=== PATIENT | male | born 1935 | race Caucasian/White ===

== ENCOUNTER 2016-08-18 09:57 | Inpatient (IN) | payer MEDICARE ==
[~2016-08-18] VITALS: Ht 193 cm; Wt 82.0 kg
--- NOTE | ~2016-08-18 | ECH ---
Transthoracic Echocardiography Report (TTE) Demographics Patient Name GUSTABO MYERS Date of Study 08/19/2016 F Patient Number [id number] Visit Number [id number] Date of 1935 Room Number 422 Accession Number [id number] Gender Male Age 81 year(s) Referring Hellen Jung MD Health And Wellness Manager [facility] Physician Physician Interpreting Kristyn Jay MD Floater Operator Physician Supervising Ordering Physician Kena SWANSON MD/SRINIVASAN [place] Nurse Stress Repair Servicer Conclusions Summary Technically adequate exam. The estimated left ventricular ejection fraction is 30%. Segmental wall motion abnormalities. Moderate left ventricular hypertrophy. There is mild aortic regurgitation by color Doppler. Procedure Type of Study TTE procedure:Echo Complete SF. Procedure Date Date: 08/19/2016 Start: 04:00 PM Technical Quality: Fair Indications:Congestive heart failure and Atrial fibrillation. Additional Indications:pacemaker Appropriate Use Criteria: 9 Height: 75 inches Weight: 178.58 pounds BSA: 2.09 m Rhythm: Paced HR: 70 bpm BP: 110/51 mmHg M-Mode/2D Measurements LV Diastolic Dimension: 5.05 cm LV Systolic Dimension: 3.91 cm LV Septum Diastolic: 1.44 cm LV PW Diastolic: 1.38 cm AO Root Dimension: 3.41 cm Cardiac Output: 8.79 l/min LA Dimension: 3.19 cm Cardiac Index: 4.21 l/min*m RV Diastolic Dimension: 3.99 cm LA volume index: 18 ml/m LVOT: 3.34 cm LVOT VTI: 14.34 cm RV Base: 4.5 cm LV Stroke volume: 125.58 ml RV Mid: 3.1 cm LV Stroke volume index: 60.09 ml/m RV Length: 7.2 cm Doppler Measurements AV Mean Gradient: 5.72 mmHg MV Peak E-Wave: 1.09 m/s LVOT Peak Velocity: 0.85 m/s AV Area (Continuity):5.98 cm PV Peak Velocity: 0.82 m/s PV Peak Gradient: 2.67 mmHg RA Area: 13.37 cm Findings Left Ventricle The left ventricle is normal in size . Moderate left ventricular hypertrophy. Diastolic function indeterminate due to patient's arrhythmia. Right Ventricle Normal right ventricle structure and function. Device lead noted in the right ventricle. Left Atrium Normal left atrial size. Right Atrium Normal right atrial size. Device lead seen in the right atrium. Mitral Valve Normal mitral valve structure and function. Mild thickening of the mitral valve leaflets. Mild mitral regurgitation by color Doppler. Aortic Valve Normal aortic valve structure and function. There is mild aortic regurgitation by color Doppler. Tricuspid Valve Normal tricuspid valve structure and function. Pulmonic Valve Normal pulmonic valve structure and function. Pericardial Effusion No evidence of pericardial effusion. Miscellaneous Visualized portions of the aortic root and ascending aorta appear normal in size. Pleural Effusion No evidence of pleural effusion. Contractility Score LV regional wall motion:(0-Non visualized 1-Normal 2-Hypokinesis 3-Akinesis 4-Dyskinesis 5-Aneurysm) Signature
[~2016-08-18 09:57] MED LIST: ALDACTONE DPS25 MG PO; ASPIR 8181 MG PO; CLARITIN DPS10 MG PO; CORDARONE DPS200 MG PO; DELTASONE DPS10 MG PO; DELTASONE DPS20 MG PO; DULCOLAX-DPS10 MG PR; DULERA 200/58.8 GM IH; DUONEB DPS3 ML IH; ELIQUIS5 MG PO; FLONASE 0.05% D16 GM IH; HABITROL DPS21 MG TD; HABITROL DPS7 MG TD; KERODEX 71113 GM TP; LANOXIN DPS0.125 MG PO; LASIX DPS40 MG PO; LIDODERM PATCH TD; LIPITOR40 MG PO; LOPRESSOR DPS12.5 MG PO; LOPRESSOR DPS50 MG PO; MAALOX DPS30 ML PO; MILK OF MAGNESI10 ML PO; MIRALAX PACKET17 GM PO; NEURONTIN DPS300 MG PO; NITROSTAT0.4 MG SL; NOVOLIN R,100 UNITS/ SQ; ORGAN-I NR200 MG PO; OYSTER SHELL C500 MG PO; PLAVIX75 MG PO; PROTONIX40 MG PO; PROVENTIL2.5 MG/0.5 IH; PROVENTIL2.5 MG/3 M IH; SALINE MIST45 ML NS; SENOKOT S1 TAB PO; SPIRIVA18 MCG IH; SURFAK DPS240 MG PO; SYMBICORT 16010.2 GM IH; THERAPEUTIC MUL1 TAB PO; TYLENOL DPS325 MG PO; ULTRAM DPS50 MG PO; VIBRAMYCIN-DPS100 M2 PO; VITAMIN D5000 UNIT PO; ZESTRIL DPS2.5 MG PO; ZESTRIL DPS5 MG PO; [UNRECOGNIZED DRUG - OTHER] OU
--- NOTE | 2016-08-19 07:42 | HP ---
ADMIT: 08/18/2016 RM/LOC: 422 [facility] MR#: [id number] [address] [address] SUKUMARMEMEGUSTABO RODRIGUEZ [address] [place] [address] History and Physical SEX: M AGE: 81 : 1935 DATE OF SERVICE: CHIEF COMPLAINT: Shortness of breath. HISTORY OF PRESENT ILLNESS: This is an 81-year-old gentleman. He has history of ischemic cardiomyopathy with EF about 20% and severe COPD. He was in the [facility] until last month. He reports he got out of there, started smoking again and then got more short of breath. He reports he was set up to have what sounds like a heart cath and a defibrillator placed, but he says that has not gotten set up yet. He states he is taking his medicines. He is not exactly sure what they all are. Again, he has started smoking. He states he is coughing more and coughing up some thick phlegm and just has been "running of out air." This is severe, nothing seems to make it better, exertion makes it much worse. PAST MEDICAL HISTORY: Ischemic cardiomyopathy, chronic systolic congestive heart failure. Coronary artery disease. Hypertension. Hyperlipidemia. History of atrial fibrillation. He has a pacemaker left bundle branch block. Cardiac stents in 2007. Last echo showed EF 25% since last June and last July. He has severe COPD, chronic hypoxic respiratory failure, hematuria, hearing loss, arthritis. He has had cataract, he has had GERD, chronic back pain. SOCIAL HISTORY: , retired. Currently smoking about half pack cigarettes per day, but before that had smoked 2 packs per day for many years. No current alcohol, history of being in the [employer], was in [place] to the [place]. PAST SURGICAL HISTORY: Include 3 stents in 2007, pacemaker, 3 hernia repairs. ALLERGIES: NONE. MEDICATIONS: 1. Aldactone 12.5 mg daily. 2. Plavix 75 mg daily. 3. Eliquis 5 mg b.i.d. 4. Lasix 80 mg in the morning, 40 at night. 5. Coreg 6.25 mg b.i.d. 6. Neurontin. 7. Symbicort. 8. DuoNeb. 9. Flonase. 10.P.r.n. medications multivitamin. FAMILY HISTORY: Heart disease, diabetes, and prostate cancer. REVIEW OF SYSTEMS: Other complete review of systems, he has had obstructive sleep apnea, refused to wear CPAP, wears hearing aids. Otherwise, reviewed entirely and negative except as above. ADMIT: 08/18/2016 RM/LOC: 422 [facility] MR#: [id number] [address] [address] [facility] [address] [place] [address] History and Physical SEX: M AGE: 81 : 1935 PHYSICAL EXAMINATION: VITAL SIGNS: Temp 95.4, pulse 78, respirations 18, blood pressure 122/63, oxygen saturations 91% on 3 L of oxygen by nasal cannula. GENERAL: This is a well-appearing 81-year-old gentleman, he is in no apparent distress. He is wearing glasses. HEENT: Pupils are equal, round, and reactive to light and accommodation. His extraocular muscles are intact. His throat shows some thick mucus in his posterior pharynx. Otherwise, clear. NECK: Supple. Normal range of motion. Trachea midline. Thyroid not palpable. HEART: Regular rate and rhythm. He has a pacer in his left upper chest. LUNGS: Diminished throughout bilaterally. ABDOMEN: Distended, tympanic throughout. LOWER EXTREMITIES: Have venous insufficiency changes. He has about 2+ pitting edema bilaterally. He can move all extremities equally bilaterally. LABORATORY AND X-RAY DATA: White count 6.6, hemoglobin 14.0, platelets 197. Chest x-ray shows hyperinflation, chronic fibrotic changes. CMP; sodium 135, potassium 4.2, chloride 86, bicarb 37, BUN 15, creatinine 1.0. Glucose is 60, albumin of 3.2. Liver tests are all normal. Troponin I was 0.087, NT proBNP is 2477. ASSESSMENT AND PLAN: 1. Shortness of breath. 2. Acute on chronic systolic congestive heart failure. 3. Elevated troponin with history of coronary artery disease, rule out acute coronary syndrome. 4. Chronic obstructive pulmonary disease, severe, with acute exacerbation. 5. Chronic back pain. 6. Coronary artery disease. 7. Atrial fibrillation. 8. Chronic anticoagulation. PLAN: He has been admitted to the hospital. Treat him for acute CHF as well as COPD exacerbation. Continue most of his same home medicines and nebulizer treatments. I will add EzPAP to help with his breathing. I suspect he will need skilled care once again, I hope that the [facility] can have this set up at that time. Ady Macedo MD/ re JOB #: [id number] CC: Ady Macedo, Attending Physician Ady Macedo, Family Physician
--- NOTE | 2016-08-19 10:00 | ER ---
ADMIT: 08/18/2016 RM/LOC: 422 [facility] MR#: [id number] [address] [address] GUSTABO MYERS [address] [place] [address] Emergency Room Report SEX: M AGE: 81 : 1935 DATE: 08/18/2016 ADDENDUM: An 81-year-old white male coming in with shortness of breath. He does have cardiac myopathy and congestive heart failure. I think he has acute on chronic congestive heart failure. He was in about 3 or 4 months ago with this as well. Chemistry essentially looks okay with the exception that his troponin has a little bump at 0.087. His BNP is 2477. He has a little bit of pain with this, but it is more kind of around to his back. CBC and urine look okay at this time. He received 60 of Lasix. He is not septic. I spoke with Dr. Macedo [facility], and we will admit here. CONDITION ON DISCHARGE: Serious but stable. Primitivo Zhong MD/ modl JOB #: [id number] CC: Ady Macedo MD, Attending Physician Ady Macedo MD, Family Physician
[2016-08-27] MEDS ORDERED: ALDACTONE DPS25 MG PO (06:34)
[2016-08-27] MEDS ORDERED: COREG DPS6.25 MG PO (06:34)
[2016-08-27] MEDS ORDERED: DELTASONE DPS20 MG PO (06:35)
[2016-08-27] MEDS ORDERED: LANOXIN DPS0.125 MG PO (06:36)
[2016-08-27] MEDS ORDERED: FEOSOL-DPS325 MG PO (06:36)
[2016-08-27] MEDS ORDERED: LASIX DPS80 MG PO (06:37)
[2016-08-27] MEDS ORDERED: ORGAN-I NR200 MG PO (06:39)
[2016-08-27] MEDS ORDERED: TYLENOL DPS325 MG PO (06:40)
[2016-08-27] MEDS ORDERED: VIBRAMYCIN-DPS100 M1 PO (06:41)
[2016-08-27] MEDS ORDERED: DUONEB DPS3 ML IH (06:42)
[2016-08-27] MEDS ORDERED: SPIRIVA18 MCG IH (06:42)
[2016-08-27] MEDS ORDERED: DULERA 200/58.8 GM IH (06:42)
[2016-08-27] MEDS ORDERED: OCEAN NASAL MIS45 ML NS (06:43)
[2016-08-27] MEDS ORDERED: EUCERIN CREME57 GM TP (06:44)
[2016-08-27] MEDS ORDERED: NICOTINE PATCH1 EAC1 TP (06:45)
--- NOTE | 2016-08-29 15:09 | CO ---
ADMIT: 08/18/2016 RM/LOC: 422 [facility] MR#: [id number] [address] [address] ALTAF MYERS [address] [place] [address] Consultation SEX: M AGE: 81 : 1935 DATE OF CONSULTATION: 08/19/2016 ATTENDING PHYSICIAN: Ady Macedo CONSULTING PHYSICIAN: Roel Escudero MD REASON FOR CONSULT: Acute on chronic congestive heart failure. HISTORY OF PRESENT ILLNESS: Altaf is an 81-year-old male admitted yesterday for increased shortness of breath and back pain. He states that over the course of the last 4 days his breathing has worsened and the pain become so severe that he finally was willing to come to the ER. He states that today his symptoms are much better. The pain he had in his sides and back has completely gone. His breathing is much improved now. He states that he has not had any chest pain prior to this admission or since admission. He has not had any palpitations or lightheadedness. CARDIAC HISTORY AND RISK FACTORS: Altaf has a significant cardiac history. He has coronary artery disease with stents placed in the LAD and RCA in 2007, followed by additional stents placed in October 2015 in the mid distal LAD. His history is difficult to discern from available records, and the patient is a limited historian. [facility] Ana Laura Kennedy. He has significant ischemic cardiomyopathy, with most recent record of ejection fraction being 25% one year ago. He has a history of atrial fibrillation status post prior ablation. He had an episode 1 year ago of atrial flutter with RVR for which he underwent cardioversion with success. He had a [employer] pacemaker placed in 2013 for sick sinus syndrome from available records. He states that he thinks his drop hammer set up operator was planning on placing an additional lead for this. He has chronic congestive heart failure. Hypertension. Hyperlipidemia. Known left bundle-branch block. His risk factors are significant for ongoing tobacco abuse. He states he has smoked intermittently for the last 55 years. He has a history of hypertension that has been treated medically over the last 10 years. He denies history of diabetes. He does have a history of hyperlipidemia. PAST MEDICAL HISTORY: Cardiac history as described above, severe COPD, chronic hypoxic respiratory failure, arthritis, chronic back pain, gastroesophageal reflux disease, cataract, and constipation. PAST SURGICAL HISTORY: Per the patient, he has only had the pacemaker placement and coronary stents. ALLERGIES: NO KNOWN DRUG ALLERGIES. MEDICATIONS: 1. Acetaminophen. 2. Albuterol. 3. DuoNeb. ADMIT: 08/18/2016 RM/LOC: 422 [facility] MR#: [id number] [address] [address] ALTAF MYERS [address] [place] [address] Consultation SEX: M AGE: 81 : 1935 4. Amiodarone 100 mg daily. 5. Apixaban 5 mg twice daily. 6. Atorvastatin 80 mg daily. 7. Symbicort. 8. Carvedilol 6.25 mg twice daily. 9. Clopidogrel 75 mg daily. 10.Digoxin 0.125 mg daily. 11.Senokot. 12.Ferrous gluconate. 13.Gabapentin. 14.Guaifenesin. 15.Eucerin cream. 16.Lidocaine pain patch. 17.Lisinopril 5 mg daily. 18.Milk of magnesia. 19.Saline nasal spray. 20.Spironolactone 12.5 mg daily. 21.Tiotropium. 22.Tramadol as needed. FAMILY HISTORY: Altaf states that his father from a heart attack, he is unsure of what age. He believes that his mom had a stroke. Does not recall any other significant family history. 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 He states that he is , but currently in the process of divorce. He has 1 child living in [place] and another who lives on the [facility]. He states that he does consume caffeine regularly. He used to drink alcohol, however, quit 35 years ago. He denies any other use of nonprescription drugs. REVIEW OF SYSTEMS: GENERAL: Positive for fatigue. Positive for weight loss. Denies fever, chills, sweats, or rash. EYES: Positive for cataract. Positive for vision color changes. Denies double vision, blurred vision, or glaucoma. ENT: Denies hearing loss or problems with nose, mouth or throat. PULMONARY: Positive for chronic cough and COPD. Denies sputum production, asthma, emphysema or bronchitis. Denies snoring loudly, wakefulness at night, or fatigue upon awakening. GASTROINTESTINAL: Positive for heartburn and acid reflux. Denies difficulty swallowing. No change in bowel habits. Denies dark or bloody stools. No history of ulcers, hiatal hernia, or gallbladder or liver disease. GENITOURINARY: Denies dysuria, hematuria, nocturia, urinary tract infection, or kidney stones. Denies history of renal insufficiency or failure. MUSCULOSKELETAL: Positive for arthritis. Denies history of gout. Denies muscle or joint pains. ENDOCRINE: Denies history of thyroid dysfunction or diabetes. HEMATOLOGIC: Denies history of anemia, easy bruising, or cancer. NEUROLOGIC: Denies chronic headaches, dizziness, syncope, stroke, seizures or ADMIT: 08/18/2016 RM/LOC: 422 [facility] MR#: [id number] [facility] [address] [address] ALTAF MYERS [address] [place] [address] Consultation SEX: M AGE: 81 : 1935 numbness or tingling. PSYCHIATRIC: Denies history of mental illness or feelings of depression. PHYSICAL EXAMINATION: VITAL SIGNS: Blood pressure 115/54, pulse 70, respirations 16, temperature 96.8, O2 saturation 90%. GENERAL: Ill appearing, in no acute distress. SKIN: [place], warm and dry. EYES: Sclerae clear. No xanthelasmas. ENT: JVP elevated. Oral mucosa is pink and moist. No jugular venous distention or carotid bruits. LUNGS: Distant breath sounds. Expiratory wheezes. HEART: Regular rate and rhythm. Distant heart sounds. ABDOMEN: Obese, soft, and nontender. MUSCULOSKELETAL: Gait is normal. EXTREMITIES: +2 edema bilaterally. NEUROLOGIC: No gross deficits. PSYCHIATRIC: Alert and oriented. Mood and affect are appropriate. DIAGNOSTIC DATA: WBC 3.2, hemoglobin 14, platelets 211. Creatinine 1.1. His MB has trended down from 8.4 to 6.1. His troponin has also trended down from 0.087 to 0.053. BNP 2477. EKG reveals a known left bundle-branch block. Chest x-ray revealed hyperinflation and possible nodule at the right apex. IMPRESSION AND RECOMMENDATIONS: 1. Acute on chronic systolic heart failure. We agree with diuresis with IV Lasix. We will also check an echocardiogram. He may have some exacerbation due to chronic right ventricular pacing. His troponin is indeterminant, and there is no definite evidence of acute coronary ADMIT: 08/18/2016 RM/LOC: 422 [facility] MR#: [id number] [address] [place] [address] [facility] [address] [place] [address] Consultation SEX: M AGE: 81 : 1935 syndrome. 2. Acute on chronic hypoxic respiratory failure. 3. Back pain, acute. 4. Coronary artery disease status post percutaneous coronary intervention last summer, [facility]. 5. Ischemic cardiomyopathy, most recent ejection fraction 1 year ago was 25%. 6. Status post internal cardioverter defibrillator. We will have that device checked to assess frequency of ventricular pacing. We will try to get pertinent records from the [facility] and adjust our plan based on results. EUGENIA Turner Student / Roel Escudero MD / re JOB #: [id number] CC: Ady Macedo, Attending Physician Ady Macedo, Family Physician
--- NOTE | 2016-09-09 12:58 | DS ---
ADMIT: 08/18/2016 RM/LOC: 422 [facility] MR#: [id number] [address] [address] GUSTABO MYERS [address] [place] [address] General Discharge Summary SEX: M AGE: 81 : 1935 ADMISSION DATE: 08/18/2016 DISCHARGE DATE: 08/26/2016 FINAL DIAGNOSES: 1. Shortness of breath. 2. Acute on chronic systolic congestive heart failure. 3. Elevated troponin with history of coronary artery disease. 4. Chronic obstructive pulmonary disease, severe, with acute exacerbation. 5. Chronic back pain. 6. Coronary artery disease. 7. Atrial fibrillation. 8. Chronic anticoagulation, on Eliquis. 9. Acute on chronic hypoxic respiratory failure. REASON FOR ADMISSION: See dictated H and P. Briefly, this is an 81-year-old gentleman, history of ischemic cardiomyopathy, EF 20%, severe COPD. He was at the [facility] rehab unit until last month. When he got out of there, started smoking again, got more short of breath. He had some more increased phlegm and so he got short of breath and was running out of air, so he came to the emergency room. HOSPITAL COURSE: The patient was admitted, treated with IV diuresis as well as pulmonary toilet, IV steroids, and some antibiotics in the form of doxycycline. We monitored him closely with elevated troponin. [facility] and it looks like he has been attempted to be upgraded to a biventricular ICD, but this has never happened because he keeps getting sick in the meantime. Echocardiogram seemed consistent with his old results. Continued with diuresis while he was here. The patient ultimately was a little afraid to go home because of overall weakness. He does have some chronic back problems, was limited as well, as well as shortness of breath and his need for chronic oxygen. Therefore, he was set up to go to skilled care at [facility] so he can continue to rehabilitate and get stronger. DISCHARGE MEDICATIONS: Include: 1. Aldactone 12.5 mg daily. 2. Amiodarone 100 mg daily. 3. Coreg 6.25 mg daily. 4. Prednisone after the 40 mg dose will be 20 mg for 5 days and then 10 mg daily after that. 5. Eliquis 5 mg b.i.d. 6. Ferrous gluconate 325 mg daily. 7. Digoxin 0.25 mg daily. 8. Lasix 80 mg daily. 9. Lipitor 80 mg daily. 10.Neurontin 600 mg b.i.d. 11.Guaifenesin 400 mg q.i.d. 12.Plavix 75 mg daily. 13.Senokot-S 2 tabs b.i.d. 14.Tylenol 650 q.i.d. ADMIT: 08/18/2016 RM/LOC: 422 [facility] MR#: [id number] [address] [place] [id number] [facility] [address] [id number] General Discharge Summary SEX: M AGE: 81 : 1935 15.Doxycycline 100 mg q.12 hours x7 days. 16.Lisinopril 5 mg daily. 17.Symbicort 160/4.5 two puffs b.i.d. 18.DuoNebs q.i.d. 19.Spiriva 1 puff daily. 20.[place] nasal mist q.i.d. 21.Eucerin b.i.d. 22.Habitrol skin patch 14 mg daily. 23.Lidoderm patch daily on 12 hours, off 12 hours. 24.Nicotine patch will be reduced to 7 mg after 14 days. We will continue with PT and OT and low-salt diet and 3 L of oxygen. Ady Macedo MD/ re JOB #: [id number] CC: Ady Macedo MD, Attending Physician Ady Macedo MD, Family Physician
[2016-09-14] MEDS ORDERED: DELTASONE DPS10 MG PO (10:01)
[2016-09-14] MEDS ORDERED: LEVAQUIN DPS500 MG PO (10:01)
[2016-09-14] MEDS ORDERED: CARVEDILOL3.125 MG PO (10:02)
[2016-09-14] MEDS ORDERED: CORDARONE DPS200 MG PO (10:02)
[2016-09-14] MEDS ORDERED: LASIX DPS80 MG PO (10:02)
[2016-09-14] MEDS ORDERED: ALDACTONE DPS25 MG PO (10:02)
[2016-09-14] MEDS ORDERED: ELIQUIS5 MG PO (10:03)
[2016-09-14] MEDS ORDERED: LANOXIN DPS0.125 MG PO (10:03)
[2016-09-14] MEDS ORDERED: PEPCID DPS20 MG PO (10:03)
[2016-09-14] MEDS ORDERED: PLAVIX75 MG PO (10:03)
[2016-09-14] MEDS ORDERED: LIPITOR40 MG PO (10:03)
[2016-09-14] MEDS ORDERED: ORGAN-I NR200 MG PO (10:03)
[2016-09-14] MEDS ORDERED: MIRALAX PACKET17 GM PO (10:03)
[2016-09-14] MEDS ORDERED: SENOKOT S1 TAB PO (10:03)
[2016-09-14] MEDS ORDERED: SYMBICORT160 MCG/6 IH (10:04)
[2016-09-14] MEDS ORDERED: DUONEB DPS3 ML IH (10:04)
[2016-09-14] MEDS ORDERED: SPIRIVA18 MCG IH (10:04)
[2016-09-14] MEDS ORDERED: OCEAN NASAL MIS45 ML NS (10:04)
[2016-09-14] MEDS ORDERED: NICODERM CQ1 EAC1 TP (10:05)
[2016-09-14] MEDS ORDERED: EUCERIN CREME120 GM TP (10:05)
[2016-09-14] MEDS ORDERED: FERROUS GLUCON324 M1 PO (10:07)
[2016-09-14] MEDS ORDERED: ENDOXCIN 4%-1%1 EACH TP (10:07)
[2016-09-14] MEDS ORDERED: ULTRAM DPS50 MG PO (10:08)
[2016-10-17] MEDS ORDERED: DULCOLAX-DPS5 MG PO (08:07)
[2016-10-17] MEDS ORDERED: DULERA 200/58.8 GM IH (08:08)
[2016-10-17] MEDS ORDERED: ZEBETA5 MG PO (08:08)
[2016-10-17] MEDS ORDERED: KLOR-CON M2020 ME1 PO (08:08)
[2016-10-17] MEDS ORDERED: PROVENTIL2.5 MG/3 M IH (08:09)
[2016-10-17] MEDS ORDERED: TUMS DPS500 MG PO (08:09)
[2016-10-17] MEDS ORDERED: OXY IR DPS5 MG PO (08:09)
[2016-10-17] MEDS ORDERED: DULCOLAX10 MG PR (08:10)
== END 2016-08-26 11:00 | DRG 291 ==
LOC: ER 09:57 → 4PCU 12:40
PROVIDERS: ADMIT Internal Medicine
DX: I11.0 Hypertensive heart disease with heart failure (principal); J96.21 Acute and chronic respiratory failure with hypoxia; J18.9 Pneumonia, unspecified organism; J44.0 Chronic obstructive pulmonary disease with (acute) lower respiratory infection; I48.0 Paroxysmal atrial fibrillation; I44.7 Left bundle-branch block, unspecified; J44.1 Chronic obstructive pulmonary disease with (acute) exacerbation; I50.23 Acute on chronic systolic (congestive) heart failure; I25.5 Ischemic cardiomyopathy; I25.10 Atherosclerotic heart disease of native coronary artery without angina pectoris; F17.210 Nicotine dependence, cigarettes, uncomplicated; G47.33 Obstructive sleep apnea (adult) (pediatric); R79.89 Other specified abnormal findings of blood chemistry; E78.5 Hyperlipidemia, unspecified; H91.90 Unspecified hearing loss, unspecified ear; M19.90 Unspecified osteoarthritis, unspecified site; K21.9 Gastro-esophageal reflux disease without esophagitis; G89.29 Other chronic pain; M54.9 Dorsalgia, unspecified; Z79.02 Long term (current) use of antithrombotics/antiplatelets; Z95.5 Presence of coronary angioplasty implant and graft; Z95.0 Presence of cardiac pacemaker; Z82.49 Family history of ischemic heart disease and other diseases of the circulatory system

== ENCOUNTER 2016-09-04 06:17 | Inpatient (IN) | payer MEDICARE ==
[~2016-09-04] VITALS: Ht 193 cm; Wt 82.0 kg
[~2016-09-04 06:17] MED LIST changes: +COREG DPS6.25 MG PO; +EUCERIN CREME57 GM TP; +FEOSOL-DPS325 MG PO; +LASIX DPS80 MG PO; +NICOTINE PATCH1 EAC1 TP; +OCEAN NASAL MIS45 ML NS; +VIBRAMYCIN-DPS100 M1 PO
--- NOTE | 2016-09-04 19:11 | ER ---
ADMIT: 09/04/2016 RM/LOC: 310 [facility] MR#: [id number] [address] [address] LULYBORISRIVERA RODRIGUEZY Markus [address] [place] [address] Emergency Room Report SEX: M AGE: 81 : 1935 DATE: 09/04/2016 The patient is an 81-year-old male, who was brought here from nursing care facility because of shortness of breath. The patient has history of COPD, hypertension, coronary artery disease with 2 stents, ischemic cardiomyopathy with ejection fraction of 20%, and who has been on 3 L of nasal cannula all the time and his O2 saturation was always 90%. In the last few days per paramedics, he became more short of breath and O2 saturation decreased and the patient was put on 5 L nasal cannula, which still could hardly get to 90% saturation. Today, the patient's saturation dropped to 80s and the patient was transferred to the ER. In the ER, the patient had 70% on room air and with non-rebreather mask, went to high 70s. The patient was put on BiPAP because he was tachypneic and in acute respiratory failure. With BiPAP of 18/10 pressure and 15 L, the O2 saturation was 80% and the patient was very tachypneic. The patient was intubated with RSI. Please refer to the chart and placement was confirmed with color change, auscultation, and chest x-ray. Chest x-ray was suggestive of infiltration. The patient was started on Levaquin and cefepime. Lab works were sent. The patient was admitted to the ICU for further followups and treatments of hypoxia, respiratory failure, COPD, pneumonia. Joe Vitale MD/ re JOB #: [id number] CC: Ady Macedo MD, Attending Physician Ady Macedo MD, Family Physician
--- NOTE | 2016-09-05 08:44 | CO ---
ADMIT: 09/04/2016 RM/LOC: 310 [facility] MR#: [id number] [address] [address] LULYGUSTABO HANCOCK [address] [place] [address] Consultation SEX: M AGE: 81 : 1935 DATE OF CONSULTATION: 09/04/2016 ATTENDING PHYSICIAN: Ady Macedo CONSULTING PHYSICIAN: Allison Vazquez MD REASON FOR CONSULTATION: Acute respiratory failure. HISTORY OF PRESENT ILLNESS: The patient is an 81-year-old gentleman with a history of COPD that is O2 dependent, coronary artery disease, recently admitted to the hospital with exacerbation, comes in with progressive dyspnea that began this morning. In the emergency room, he was severely hypoxemic, initially tried oxygen and BiPAP, saturations remained in the 80% range. He was intubated because of progressive respiratory failure. Chest x-ray shows bilateral infiltrates. White count 16,600. D-dimer is elevated. Kidney function normal. Hemoglobin 14. He is currently on 100% with PEEP of 8, saturations are now 92%, blood pressure slightly low, possibly post intubation from medication or from decrease respiratory drive. Ventilator settings were reviewed. PAST MEDICAL HISTORY: Reviewed, includes; 1. Coronary artery disease with prior stents. 2. Congestive heart failure. It is also documented, and Cardiology has followed him in the last hospitalization. His prior ejection fraction was 25%. 3. Atrial fibrillation with prior ablation. 4. Atrial flutter. 5. Sick sinus syndrome. 6. Pacemaker placement. 7. Current tobacco addiction. 8. Severe COPD. 9. Arthritis. 10.Gastroesophageal reflux. 11.Cataract. 12.Constipation. ALLERGIES: NONE. MEDICATIONS: From transfer are reviewed: 1. Spiriva. 2. Tramadol p.r.n. 3. Spironolactone. 4. Milk of magnesia. 5. Lisinopril. 6. Guaifenesin. 7. Gabapentin. 8. Ferrous sulfate. 9. Digoxin. 10.Clopidogrel. ADMIT: 09/04/2016 RM/LOC: 310 [facility] MR#: [id number] [address] [address] GUSTABO MYERS [address] [place] [address] Consultation SEX: M AGE: 81 : 1935 11.Carvedilol. 12.Symbicort. 13.Atorvastatin. 14.Apixaban. 15.Amiodarone. 16.DuoNeb. 17.Albuterol. 18.Acetaminophen. SOCIAL HISTORY: He is currently at a nursing facility. 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 Former alcohol use, but quit 35 years ago. FAMILY HISTORY: Cannot be obtained from the patient, but from prior history, it says mom had a stroke. Dad had a heart attack. REVIEW OF SYSTEMS: Cannot be obtained. He is intubated and sedated. PHYSICAL EXAMINATION: VITAL SIGNS: Temperature 98, pulse is 80, respirations 20, blood pressure 85/42. HEENT: He is intubated. HEENT is within normal limits other than that. NECK: No JVD or bruits. HEART: Regular rate. LUNGS: Bilateral rhonchi and wheeze. ABDOMEN: Soft. EXTREMITIES: No cyanosis, clubbing, edema. GENITORECTAL: Deferred. NEUROLOGICAL: Moving all extremities. Pupils are round, reactive, responsive to light and accommodation. LABORATORY AND X-RAY DATA: White count 16,600. Hemoglobin was 14.1, creatinine was normal. Chemistry profile was normal. INR was less than 1. Lactate normal. Blood cultures pending. Initial atrial blood gases pH 7.29, pCO2 of 85, PO2 of 63 on noninvasive ventilation. Procalcitonin level was normal. Chest x-ray, bilateral infiltrates. Serum bicarbonate 38. IMPRESSION: 1. Acute hypercapnic and hypoxemic respiratory failure, most likely secondary to underlying chronic obstructive pulmonary disease that is severe, possible pneumonia with elevated white count or congestive heart failure. He is intubated and currently stable on mechanical ventilation, and sedation has been ordered. We will wean oxygen to keep saturations ADMIT: 09/04/2016 RM/LOC: 310 [facility] MR#: [id number] [address] [address] GUSTABO MYERS [address] [place] [address] Consultation SEX: M AGE: 81 : 1935 greater than 90% to 92%. 2. Possible healthcare-associated pneumonia. We will start three antibiotics pending cultures. A mini bronchoalveolar lavage will be performed. 3. Severe chronic obstructive pulmonary disease. We will start intravenous steroids and nebs. 4. History of coronary artery disease. We will check troponins. 5. Cardiomyopathy. Check proBNP and monitor. Cardiology will probably need to be involved as well. OG will be placed. Tube feedings as needed. Elevated D-dimer, CT angiogram will be performed to rule out pulmonary embolism with his recent hospitalization for acute respiratory failure. 6. Critical care time 35 minutes. Allison Vazquez MD/ re JOB #: [id number] CC: Ady Macedo, Attending Physician Ady Macedo, Family Physician
--- NOTE | 2016-09-09 12:58 | HP ---
ADMIT: 09/04/2016 RM/LOC: 310 [facility] MR#: [id number] [address] [address] GUSTABO MYERS [address] [place] [address] History and Physical SEX: M AGE: 81 : 1935 DATE OF SERVICE: CHIEF COMPLAINT: Shortness of breath. HISTORY OF PRESENT ILLNESS: This is an 81-year-old gentleman. He has a past history of severe COPD, oxygen dependent as well as chronic systolic congestive heart failure. He was recently admitted for COPD exacerbation as well as heart failure and ultimately was discharged to [facility] because of some weakness. He started getting a little bit more thicker sputum on the day prior to admission, and then presented to the emergency room in acute respiratory distress. Initial pH was normal, but pCO2 was elevated as well as his PO2 was low, and because of respiratory distress, he was intubated in the emergency room. Followup ABG has improved. Oxygen saturations are improved. He is continuing on 90% FiO2 at this time. Pulmonology has already been consulted and has already evaluated him. He is currently on the ventilator and doing much better. He is intubated and sedated. He has received cefepime, vancomycin, and Levaquin for antibiotics, as well as IV steroids, and blood pressure is running low, so he has been put on norepinephrine to keep his blood pressure up. He is currently again intubated, giving me no history. PAST MEDICAL HISTORY: Reviewed from his last H and P, which is very recent and unchanged. SOCIAL HISTORY: Reviewed from his last H and P, which is very recent and unchanged. FAMILY HISTORY: Reviewed from his last H and P, which is very recent and unchanged. REVIEW OF SYSTEMS: Really unobtainable because of the patient's intubated status. PHYSICAL EXAMINATION: VITAL SIGNS: Oxygen saturation 96% on 90% FiO2, respirations 23, blood pressure 100s/40s, heart rate 70s. GENERAL: This is an elderly-appearing, 81-year-old gentleman, , in no apparent distress. He is intubated sedated. HEENT: Pupils are equally round, a little sluggish, but reactive. Throat is dry but clear. He has an ET tube in place. NECK: Supple. Thyroid is not palpable. Trachea midline. HEART: Regular rate and rhythm. LUNGS: Severely diminished bilaterally. ABDOMEN: Soft, flat, normal bowel sounds. No elicitation of tenderness. EXTREMITIES: He move all upper and lower extremities. Normal pulses. Radial pulses are normal. Lower extremities have 3+ pitting edema bilateral lower extremities. NEURO: Really unobtainable. SKIN: He has some skin changes on his lower extremities bilaterally from poor circulation. ADMIT: 09/04/2016 RM/LOC: 310 [facility] MR#: [id number] [address] [place] [id number] [place] [address] [place] [address] History and Physical SEX: M AGE: 81 : 1935 LABORATORY AND X-RAY DATA: As above. X-ray showed left lower lobe pneumonia. ASSESSMENT AND PLAN: Left lower lobe pneumonia, gram-negative mica suspected with sepsis and shock. He had gram-negative rods on his mini BAL, I just saw come back. We will continue treatment with broad-spectrum gram-negative coverage. Continue the Vanc until we get the full culture tomorrow. Initial lactic acid was okay. I will check another one tomorrow given his hypotension. I will monitor his blood pressure closely as well as urine output to make sure renal function maintains adequate during this time of sepsis with shock. We will have to be careful about the amount of fluid given because of his underlying systolic congestive heart failure. He also has atrial fibrillation. He has been receiving Eliquis. We will have to see how we can anticoagulate him when he is intubated at the current time. Ady Macedo MD/ re JOB #: [id number] CC: Ady Macedo, Attending Physician dAy Macedo, Family Physician
[2016-09-14] MEDS ORDERED: DELTASONE DPS10 MG PO (10:01)
[2016-09-14] MEDS ORDERED: LEVAQUIN DPS500 MG PO (10:01)
[2016-09-14] MEDS ORDERED: LASIX DPS80 MG PO (10:02)
[2016-09-14] MEDS ORDERED: CARVEDILOL3.125 MG PO (10:02)
[2016-09-14] MEDS ORDERED: CORDARONE DPS200 MG PO (10:02)
[2016-09-14] MEDS ORDERED: ALDACTONE DPS25 MG PO (10:02)
[2016-09-14] MEDS ORDERED: SENOKOT S1 TAB PO (10:03)
[2016-09-14] MEDS ORDERED: MIRALAX PACKET17 GM PO (10:03)
[2016-09-14] MEDS ORDERED: ELIQUIS5 MG PO (10:03)
[2016-09-14] MEDS ORDERED: PLAVIX75 MG PO (10:03)
[2016-09-14] MEDS ORDERED: LIPITOR40 MG PO (10:03)
[2016-09-14] MEDS ORDERED: PEPCID DPS20 MG PO (10:03)
[2016-09-14] MEDS ORDERED: ORGAN-I NR200 MG PO (10:03)
[2016-09-14] MEDS ORDERED: LANOXIN DPS0.125 MG PO (10:03)
[2016-09-14] MEDS ORDERED: OCEAN NASAL MIS45 ML NS (10:04)
[2016-09-14] MEDS ORDERED: DUONEB DPS3 ML IH (10:04)
[2016-09-14] MEDS ORDERED: SYMBICORT160 MCG/6 IH (10:04)
[2016-09-14] MEDS ORDERED: SPIRIVA18 MCG IH (10:04)
[2016-09-14] MEDS ORDERED: EUCERIN CREME120 GM TP (10:05)
[2016-09-14] MEDS ORDERED: NICODERM CQ1 EAC1 TP (10:05)
[2016-09-14] MEDS ORDERED: FERROUS GLUCON324 M1 PO (10:07)
[2016-09-14] MEDS ORDERED: ENDOXCIN 4%-1%1 EACH TP (10:07)
[2016-09-14] MEDS ORDERED: ULTRAM DPS50 MG PO (10:08)
--- NOTE | 2016-09-29 06:57 | DS ---
ADMIT: 09/04/2016 RM/LOC: 420 [facility] MR#: [id number] [address] [address] SUKUMARMEMERIVERA RODRIGUEZY Markus [address] [address] General Discharge Summary SEX: M AGE: 81 : 1935 ADMISSION DATE: 09/04/2016 DISCHARGE DATE: 09/12/2016 FINAL DIAGNOSES: 1. Acute on chronic hypoxic respiratory failure. 2. Healthcare-associated pneumonia. 3. Chronic systolic congestive heart failure. 4. Pseudomonas pneumonia with sepsis and shock. 5. Acute on chronic heart failure with reduced ejection fraction. 6. Hypotension. 7. Atrial fibrillation, severe. 8. Chronic obstructive pulmonary disease with exacerbation. REASON FOR ADMISSION: See dictated H and P. HISTORY OF PRESENT ILLNESS: Briefly, this is an 81-year-old gentleman with severe heart disease and lung disease, presented in severe respiratory distress. [facility] He was [facility] and ultimately intubated in the field. He was placed on Levaquin, vancomycin, and cefepime. He had a Levophed drip to keep his pressures up. CTA of his chest did reveal pneumonia. Sputum culture ultimately showed Pseudomonas, which was sensitive to antibiotics. He had a PICC placed. Cardiology consult obtained. Arterial line placed. He did gradually improve on the ventilator over the next few days. He required tube feeding and blood pressure support. He also received some diuresis after his blood pressure had stabilized a bit as he got some fluid boluses initially. He did have some constipation problems, was set up to be extubated on the , which was done with success. Speech Therapy thought he could do pureed and nectar thick liquids and this gradually improved throughout his time in the hospital. Therapy worked with him, and by the , he was transitioned to thin liquids and mechanical soft. Changed to routine tele on the , and on the , he was set up to be discharged, and after that, the patient had an episode of decreased responsiveness. Blood pressure went down into the 60s and then came back up to the 90s and he felt better. Patient was kind of lightheaded with this episode and so we kept him in the hospital for another day. He was monitored. By the next day, he was ADMIT: 09/04/2016 RM/LOC: 420 [facility] MR#: [id number] [address] [address] [facility] [address] [place] [address] General Discharge Summary SEX: M AGE: 81 : 1935 feeling okay. Oxygen, blood pressure, heart rate, all were stable. No recurrent episodes happened, so he was transferred to [facility]. See discharge medication list for that list MEDICATIONS: 1. He will be on prednisone 40 mg a day for 7 days, and then 20 mg a day, and then 10 mg a day. 2. After that, he will be on Levaquin 500 mg daily for 10 days. 3. Lasix will be 80 mg daily. He will have daily weights and PT and OT and speech therapy. Oxygen to keep his sats above 90%, but less than 95. Follow up with me in 1 weeks time and with MAT per their schedule. Ady Macedo MD/ re JOB #: [id number] CC: Ady Macedo MD, Attending Physician Ady Macedo MD, Family Physician
[2016-10-17] MEDS ORDERED: DULCOLAX-DPS5 MG PO (08:07)
[2016-10-17] MEDS ORDERED: KLOR-CON M2020 ME1 PO (08:08)
[2016-10-17] MEDS ORDERED: DULERA 200/58.8 GM IH (08:08)
[2016-10-17] MEDS ORDERED: ZEBETA5 MG PO (08:08)
[2016-10-17] MEDS ORDERED: TUMS DPS500 MG PO (08:09)
[2016-10-17] MEDS ORDERED: OXY IR DPS5 MG PO (08:09)
[2016-10-17] MEDS ORDERED: PROVENTIL2.5 MG/3 M IH (08:09)
[2016-10-17] MEDS ORDERED: DULCOLAX10 MG PR (08:10)
== END 2016-09-12 14:05 | DRG 870 ==
LOC: ER 06:17 → 3ICU 07:55 → 4PCU 09-11 18:26
PROVIDERS: ADMIT Internal Medicine
PROC: 0BH17EZ Insertion of Endotracheal Airway into Trachea, Via Natural or Artificial Opening (ICD-10-PCS; principal; 2016-09-04)
PROC: 5A1955Z Respiratory Ventilation, Greater than 96 Consecutive Hours (ICD-10-PCS; 2016-09-04)
PROC: 03HY32Z Insertion of Monitoring Device into Upper Artery, Percutaneous Approach (ICD-10-PCS; 2016-09-04)
PROC: 02HV33Z Insertion of Infusion Device into Superior Vena Cava, Percutaneous Approach (ICD-10-PCS; 2016-09-04)
PROC: 3E0G76Z Introduction of Nutritional Substance into Upper GI, Via Natural or Artificial Opening (ICD-10-PCS; 2016-09-05)
DX: A41.9 Sepsis, unspecified organism (principal); R65.21 Severe sepsis with septic shock; I50.23 Acute on chronic systolic (congestive) heart failure; J44.0 Chronic obstructive pulmonary disease with (acute) lower respiratory infection; J96.01 Acute respiratory failure with hypoxia; J96.02 Acute respiratory failure with hypercapnia; J15.1 Pneumonia due to Pseudomonas; I11.0 Hypertensive heart disease with heart failure; E46 Unspecified protein-calorie malnutrition; I48.92 Unspecified atrial flutter; J44.1 Chronic obstructive pulmonary disease with (acute) exacerbation; Z23 Encounter for immunization; E87.6 Hypokalemia; R79.89 Other specified abnormal findings of blood chemistry; I48.91 Unspecified atrial fibrillation; I25.10 Atherosclerotic heart disease of native coronary artery without angina pectoris; I25.5 Ischemic cardiomyopathy; F17.200 Nicotine dependence, unspecified, uncomplicated; M19.90 Unspecified osteoarthritis, unspecified site; K59.00 Constipation, unspecified; Z95.5 Presence of coronary angioplasty implant and graft; Z99.81 Dependence on supplemental oxygen; Z95.0 Presence of cardiac pacemaker

== ENCOUNTER 2016-09-24 15:00 | Emergency (ER) | payer MEDICARE ==
[~2016-09-24 15:00] MED LIST changes: +CARVEDILOL3.125 MG PO; +ENDOXCIN 4%-1%1 EACH TP; +EUCERIN CREME120 GM TP; +FERROUS GLUCON324 M1 PO; +LEVAQUIN DPS500 MG PO; +NICODERM CQ1 EAC1 TP; +PEPCID DPS20 MG PO; +SYMBICORT160 MCG/6 IH
--- NOTE | 2016-09-27 18:24 | ER ---
ADMIT: 09/24/2016 RM/LOC: ER [facility] MR#: [id number] [address] [address] SUKUMARMEMERIVERA RODRIGUEZY Markus [address] [place] [address] Emergency Room Report SEX: M AGE: 81 : 1935 DATE: 09/24/2016 BRIEF ADDENDUM: Please see my T-sheet for complete review of systems, past medical history, and physical exam. CHIEF COMPLAINT: Shortness of breath and "rib pain." HISTORY OF PRESENT ILLNESS: This is a pleasant 81-year-old male, who comes to us from [facility] after staff noted some increasing pain and shortness of breath today. The patient was admitted a month ago for pneumonia as well as some rib fracture secondary to fall. Today, he states he has had increasing pain about his ribs bilaterally on the lower aspect of his rib cage. He states he is using Ultram every 8 hours, but is not feeling like this is controlling his pain. He is concerned as he has an upcoming surgery to replace his pacemaker generator. Denies any fevers, chills, chest pain, palpitations, ankle or leg swelling, lightheadedness, or dizziness. Does admit to a nonproductive cough. Does have past medical history significant for atrial fibrillation, CHF, coronary artery disease, hypertension, COPD, and chronic back pain. He is on blood thinner secondary to the pacer and atrial fibrillation. COURSE IN THE EMERGENCY ROOM: The patient was seen and examined. He is afebrile and nontoxic. Does have some tenderness to the anterior aspect of his lower thorax. No obvious crepitus on exam. Lungs have faint wheezes bilaterally. No obvious rales or rhonchi. HEART: Regular rate and rhythm. No JVD. No murmur. No evidence of gross pedal edema. He does have some trace bilateral. He is oriented x4. Motor is equal in the upper lower extremities compared bilaterally. Sensation is intact. Did get some basic lab work on him today. Chest x-ray negative for any acute process, it is pretty much stable from his exam done about 3 weeks ago. Sodium 135, potassium 3.7, CO2 of 36, BUN 17, creatinine 1.1. AST and ALT 16 and 21. White blood count 7.9, hemoglobin 12.6, hematocrit 38.8, and platelets 160. I also did get a urine as he admitted to some pain with urination after secondary history was obtained. It was negative for any acute infection. I did give him a breathing treatment in the department tonight. IMPRESSION: Chest wall pain secondary to fall and shortness of breath likely chronic secondary to chronic obstructive pulmonary disease. DISPOSITION: Given the lab and x-ray findings today, I do not see any ADMIT: 09/24/2016 RM/LOC: [facility] MR#: [id number] [address] [place] [phone] [facility] [address] [place] [address] Emergency Room Report SEX: M AGE: 81 : 1935 evidence of any acute exacerbation or infection likely shortness of breath secondary to his COPD and underlying cardiac disease. I believe much of his complaint today was driven secondary to the pain he was having about his ribs and low back. He is on Ultram 50 mg every 8 hours as needed for pain. I did think it was appropriate to increase this to every 4 to 6 hours as needed for pain. He was agreeable to this plan. He was discharged back to [facility] to resume all of his medications as previously ordered except for the increase in the Ultram to every 4 to 6 hours, and he is to apply ice or heat to the ribs and back as needed for pain. Follow up with Dr. Macedo as needed. Questions sought and answered to the best of my ability and to the patient's satisfaction. Discharged in stable condition. EUGENIA Tariq / John Klein MD / re JOB #: [id number] CC: John Klein MD, Attending Physician [facility] Physician, Family Physician
[2016-10-17] MEDS ORDERED: DULCOLAX-DPS5 MG PO (08:07)
[2016-10-17] MEDS ORDERED: KLOR-CON M2020 ME1 PO (08:08)
[2016-10-17] MEDS ORDERED: DULERA 200/58.8 GM IH (08:08)
[2016-10-17] MEDS ORDERED: ZEBETA5 MG PO (08:08)
[2016-10-17] MEDS ORDERED: OXY IR DPS5 MG PO (08:09)
[2016-10-17] MEDS ORDERED: PROVENTIL2.5 MG/3 M IH (08:09)
[2016-10-17] MEDS ORDERED: TUMS DPS500 MG PO (08:09)
[2016-10-17] MEDS ORDERED: DULCOLAX10 MG PR (08:10)
== END 2016-09-24 18:10 | disposition home or self-care (01) ==
LOC: ER 15:00
DX: R07.89 Other chest pain (principal); R06.02 Shortness of breath; I50.9 Heart failure, unspecified; J44.9 Chronic obstructive pulmonary disease, unspecified; E78.5 Hyperlipidemia, unspecified; K21.9 Gastro-esophageal reflux disease without esophagitis; F17.210 Nicotine dependence, cigarettes, uncomplicated

== ENCOUNTER 2016-10-06 12:01 | Inpatient (IN) | payer MEDICARE ==
[~2016-10-06] VITALS: Ht 193 cm; Wt 77.1 kg
--- NOTE | 2016-10-13 09:09 | CO ---
ADMIT: 10/06/2016 RM/LOC: 311 [facility] MR#: [id number] [address] [address] GUSTABO RYAN [address] [address] Consultation SEX: M AGE: 81 : 1935 DATE OF CONSULTATION: 10/08/2016 ATTENDING PHYSICIAN: Ady Macedo CONSULTING PHYSICIAN: Kong Caldwell MD LOCATION OF SERVICE: [facility]. REASON FOR CONSULTATION: Dr. Macedo has requested our consultation for counseling aide, coordination of goals, and options of care. HISTORY OF PRESENT ILLNESS: This is an 81-year-old elderly gentleman who has a complex medical history requiring frequent hospitalizations and was last hospitalized on 09/04/2016 to 09/12/2016 for acute on chronic hypoxic respiratory failure, Pseudomonas pneumonia with sepsis and shock and exacerbation of his COPD. He did require intubation and ventilation for short time during that hospitalization. He was discharged to [facility] for further care needs and developed weakness and hypotension and presented to our emergency department on 10/06/2016, with these concerns. In the emergency department, his blood pressure was found to be low. White count of 10.3, hemoglobin 10.3, his lactate was 1.4, and he developed acute on chronic hypoxic respiratory failure with pneumonia, and antibiotic therapy was started. He was transferred to the intensive care unit for further evaluation and treatment. He did undergo a modified barium swallow today for concerns of aspiration, and he was found not to show aspiration at this time; however, he does have dysphagia and modified diet is in place. Physical Therapy, Occupational Therapy, and Speech Therapy are following. Nursing does report that he does have anxiety with his breathing changes. He is currently on 3 L of oxygen per nasal cannula and oxygenating at 99%. His last ABGs were drawn today at 12:30 with a pH of 7.42, pCO2 of 39, PO2 of 83 with a bicarb of 25 on his oxygen per nasal cannula. No BiPAP has been initiated at this time. Antibiotic therapy continues. Blood cultures have been drawn on October 06, which showed no growth to date. We have been asked to counseling aide and coordinating goals and options of care at this time. Current functional status reflects a palliative performance score of around 30 to 40. He is in bed, unable to do any work, needing assistance with all cares. His intake is reduced. His conscious level is full. He is alert and oriented x3. Prior to this hospitalization, his functional status as he reports reflects a palliative performance score of around 50 to 60. He was ambulating with assistive device. He was needing assistance with self-care. His intake was normal to reduced. His conscious level was full. He was doing some rehabilitation there at [facility]. Currently, he denies shortness of breath, denies pain. He does report anxiety that "comes and goes." He denies nausea, vomiting, or constipation. He does admit to fatigue and anxiety at times. PAST MEDICAL HISTORY: Ischemic cardiomyopathy, chronic systolic congestive ADMIT: 10/06/2016 RM/LOC: 311 [facility] MR#: [id number] [address] [address] [facility] [place] [address] Consultation SEX: M AGE: 81 : 1935 heart failure, CAD, hypertension, hyperlipidemia, atrial fibrillation, last echocardiogram revealed an ejection fraction of 25%, severe COPD, chronic hypoxic respiratory failure, hematuria, hearing loss, arthritis, cataract, GERD, chronic back pain, multiple hospitalizations. ADVANCED DIRECTIVE AND CODE STATUS: He is a do not resuscitate status, but okay for short-term intubation. He reports his healthcare [id number] is his friend, Terrance Osborn at #[phone]. He reports he has completed the document. SOCIAL HISTORY: He has been currently living at [facility] for rehabilitation needs. He is . He is Confucianist. He does have adult children involved in his care. He does have a history of smoking half a pack per day currently, and before that, he smoked 2 packs per day for many years. He denies any current alcohol intake. He does have a history of being in the [employer] and in [place] to the [place]. PAST SURGICAL HISTORY: Three coronary stents in 2007, pacemaker placement, and 3 hernia repairs. CURRENT MEDICATIONS: Include: 1. Cordarone. 2. Zebeta. 3. Solu-Medrol. 4. Lanoxin. 5. Merrem. 6. Vancomycin. 7. Plavix. 8. Lasix. 9. Dulcolax. 10.Aldactone. 11.Senokot-S. 12.Pepcid. 13.MiraLAX. 14.Lipitor. 15.Eliquis. 16.DuoNeb. 17.Spiriva. 18.OxyIR. 19.Eucerin. 20.Dulera. 21.[place] nasal spray. 22.Organidin. 23.Tylenol. ALLERGIES: NO KNOWN DRUG ALLERGIES. REVIEW OF SYSTEMS: A 10-point review of system was conducted was otherwise ADMIT: 10/06/2016 RM/LOC: 311 [facility] MR#: [id number] [address] [place] [id number] GUST[place] RYAN [address] [address] Consultation SEX: M AGE: 81 : 1935 unremarkable except as noted in HPI and PMH. PHYSICAL EXAMINATION: CONSTITUTIONAL: Please see medical record for height, weight, and BMI. GENERAL STATUS: This is an elderly male, in no acute distress, alert and oriented, able to participate fully in consultation. VITAL SIGNS AND CODE STATUS: He is a do not resuscitate status, but short- term intubation is okay. His temperature is 94.8, heart rate 126 respiratory rate 15, blood pressure 116/73, he is on 2 L of oxygen per nasal cannula oxygenating at 97%. HEENT: Head is normocephalic and atraumatic. He is not wearing glasses. Pupils are 3 mm, PERRLA. Hearing is intact bilaterally. Oral mucosa is pink and moist. Dentition is worn. Anicteric sclerae. Conjunctivae are pale. NECK: No lymphadenopathy. Trachea is midline. Supple. No JVD. RESPIRATORY: Respirations are regular without distress. Lung sounds are diminished with prolonged expiratory phase. He does have expiratory wheezing. He does have bilateral rhonchi. CARDIOVASCULAR: Rate and rhythm are irregularly irregular. I do not auscultate rubs or murmurs. EXTREMITIES: Upper and lower extremities are free of cyanosis or clubbing. He does have bilateral lower extremity edema and ecchymoses on his upper extremities. MUSCULOSKELETAL: Free of joint deformities does have generalized weakness. NEUROLOGICAL: Alert and orient x3. Does follow commands. Cranial nerves II through XII grossly intact. PSYCHIATRIC: Affect is appropriate. Insight is intact. He is cooperative with cares. DIAGNOSTIC DATA: Laboratory work reveals sodium of 137, potassium 3.8, chloride 98, and creatinine 1.1. WBC is 11.9, hemoglobin 11.2, hematocrit 34.4, and platelets 233. Last echocardiogram on august 19, 2016 reveals ejection fraction of 30%. Radiology reports have been reviewed. Please see EMR for details. IMPRESSION AND PLAN: 1. Physical debility. 2. Dysphagia. Speech Therapy is following. Modified barium swallow today shows no aspiration. Modified diet is in place. 3. Fatigue. 4. Anxiety. 5. Acute on chronic hypoxic respiratory failure. 6. Sepsis with shock. 7. Pneumonia, healthcare acquired. 8. Acute on chronic systolic heart failure. Last echocardiogram was on August 19, 2016, revealing ejection fraction of 30%. 9. Atrial fibrillation with rapid ventricular response. 10.Severe chronic obstructive pulmonary disease, oxygen dependent. 11.Palliative care. 12.Do not resuscitate, but okay for short-term intubation. ADMIT: 10/06/2016 RM/LOC: 311 [facility] MR#: [id number] 2620 [facility] [address] [place], [place] [address] GUSTABO RYAN [address] [address] Consultation SEX: M AGE: 81 : 1935 Symptoms are controlled at this time; however, nursing does report increased anxiety with modified barium swallow testing today, and we will continue to monitor this closely. He does not complain of pain or dyspnea at this time. We did review his critical health concerns as well as chronic and progressive debility, and we reviewed goals and options of care including code status full code versus do not resuscitate/do not intubate status with benefits versus burdens. He verbalizes understanding of the severity of his health, and he does confirm a do not resuscitate status, but does direct that he would tolerate short-term intubation as he did his last hospitalization in order to get better, but he would not want to live on machines his whole life. We did review healthcare [id number] documentation, and he does report that he has completed this documentation and has appointed his friend, Terrance Osborn as his [id number] at #[phone]. I did encourage him to have family or friend bring in a copy of this document for his medical record. Mr. Ryan does explain to me that he has thought about as "my body is so weak I feel it." He further states "I do not want to ." Much counseling aide and support given concerning his multiple chronic health needs and progressive debility, and he again verbalizes understanding of this. I feel much support and counseling aide is needed to fully grasp and accept his significant health concerns. We will continue to follow during this hospitalization. I do anticipate nursing facility will be needed at discharge for ongoing care needs. We will continue to discuss goals and options of care with him as hospice is an option that could be considered. I did discuss this consultation with nursing staff. Mr. Ryan was seen in collaboration with Dr. Kong Caldwell, who agrees with above assessment, discussion, and plan. I would like to thank Dr. Macedo for the invitation to participate in Mr. Ryan's hospital course. Total consultation time was from 1240 hours to 1325 on 10/08/2016 by the Palliative Medicine VISUAL MERCHANDISING DIRECTOR. Greater than 50% of time was spent at the bedside on counseling aide and coordination of care. Gertrude Boykin, VISUAL MERCHANDISING DIRECTOR / Kong Caldwell MD / re JOB #: [id number] CC: Ady Macedo, Attending Physician Ady Macedo, Family Physician
--- NOTE | 2016-10-15 10:30 | CO ---
ADMIT: 10/06/2016 RM/LOC: 311 [facility] MR#: [id number] [address] [address] ALTAF MYERS [address] [address] Consultation SEX: M AGE: 81 : 1935 DATE OF CONSULTATION: 10/09/2016 ATTENDING PHYSICIAN: Ady Macedo CONSULTING PHYSICIAN: Natan Shane MD REASON FOR CONSULT: Atrial flutter with RVR. Thalia Lu RN, scribing for Dr. Natan Shane. HISTORY OF PRESENT ILLNESS: Altaf is a pleasant, 81-year-old gentleman I have been asked to see in Cardiology consultation by Dr. Macedo for atrial flutter with RVR. He has history of coronary artery disease status post PCI to LAD and RCA in 2007 as well as [id number] LAD stents in October 2015. [facility] He has history of ischemic cardiomyopathy with EF down to 25%. He also has history of atrial fibrillation, has had prior ablation as well as history of atrial flutter with RVR with previous cardioversion in the past. He has a Medtronic permanent pacemaker in 2013 for sick sinus syndrome. He also has history of hypertension, hyperlipidemia, and history of a left bundle branch block. He also has ongoing tobacco use for last 55 years. Altaf presents to [facility] with possible sepsis and pneumonia. He has been hospitalized multiple times since the first of the year. We last saw him at the end of July. At that time, he was evaluated by Cardiology for acute on chronic systolic heart failure. Discharge weight at that time included 180 pounds. He was then admitted again for heart failure in August and readmitted currently 3 days ago with pneumonia. He also has questions of sepsis. Currently, he is in atrial fibrillation with RVR/atrial flutter, heart rates were ranging around 120. He denies any chest pain, shortness of breath, palpitations, or presyncope. He does not appear to have any peripheral edema and denies any orthopnea. On admission, he was hypotensive which has gradually improved. He is off pressors with blood pressures in the 90s. PAST MEDICAL HISTORY: Cardiac history as described above. History of severe end-stage COPD, chronic hypoxic respiratory failure, osteoarthritis, chronic back pain, gastroesophageal reflux disease, cataract disease, constipation. PAST SURGICAL HISTORY: Permanent pacemaker insertion and coronary stent. ALLERGIES: NO KNOWN MEDICATION ALLERGIES. MEDICATIONS: Current medications include: 1. Aldactone 12.5 p.o. daily. 2. Amiodarone 200 daily. 3. Dulcolax 5 p.o. every 2 days. 4. Eliquis 5 p.o. b.i.d. 5. Lanoxin 0.125 p.o. daily. ADMIT: 10/06/2016 RM/LOC: 311 [facility] MR#: [id number] [address] [place] [id number] [facility] [address] [place] [address] Consultation SEX: M AGE: 81 : 1935 6. Lasix 80 p.o. daily. 7. Lipitor 80 at bedtime. 8. MiraLax 17 g p.o. b.i.d. 9. Organidin 400 mg p.o. q.i.d. 10.Pepcid 20 p.o. b.i.d. 11.Plavix 75 daily. 12.Senokot-S 2 tabs p.o. b.i.d. 13.Zebeta 2.5 p.o. daily. 14.Dulera 200 two puffs b.i.d. 15.DuoNeb q.4 hours. 16.Spiriva 18 mcg inhalation daily. 17.Merrem 500 mg IV q.6 hours. 18.Solu-Medrol 40 mg IV q.8 hours. 19.Vancomycin 1.25 g IV q.24 hours. FAMILY HISTORY: Noncontributory. SOCIAL HISTORY: Altaf lives on his own in [place]. He currently has been residing in skilled facility for several months. He continues to smoke cigarettes. He has former history of alcohol abuse. Denies any current special diet or caffeine use. REVIEW OF SYSTEMS: GENERAL: Reports increased fatigue over the last 2 days. No documented fever currently. Weight is stable. EYES: History of cataracts. Denies any current visual loss or double vision. THROAT, MOUTH and EARS: Denies hearing loss or problems with nose, mouth or throat. RESPIRATORY: End-stage COPD. Denies any hemoptysis. GASTROINTESTINAL: Denies heartburn or difficulty swallowing. No change in bowel habits. Denies dark or bloody stools. No history of ulcers, hiatal hernia, or gallbladder or liver disease. GENITOURINARY: Denies dysuria, hematuria, nocturia, urinary tract infection, or kidney stones. Denies history of renal insufficiency or failure. MUSCULOSKELETAL: History of osteoarthritis. Denies any muscle or joint pains currently. ENDOCRINE: History of diabetes. Denies thyroid issues. HEMATOLOGY: Has mild anemia with a hemoglobin of 10. No current bleeding issues. NEUROLOGIC: Denies chronic headaches, dizziness, syncope, stroke, seizures or numbness or tingling. PSYCHIATRIC: Denies history of mental illness or feelings of depression. PHYSICAL EXAMINATION: VITAL SIGNS: Blood pressure 146/77, heart rate 123, respirations 18, temperature 95.3, oxygenation 96% on O2 SKIN: Conde, warm and dry. EYES: Sclerae clear. No xanthelasmas. ENT: Oral mucosa is pink and moist. No jugular venous distention or carotid bruits. ADMIT: 10/06/2016 RM/LOC: 311 [facility] MR#: [id number] [address] [address] ALTAF MYERS [address] [place] [address] Consultation SEX: M AGE: 81 : 1935 HEART: Tachycardic. LUNGS: Decreased breath sounds bilaterally. ABDOMEN: Soft and nontender. MUSCULOSKELETAL: Gait is normal. EXTREMITIES: Peripheral pulses palpable. No clubbing, cyanosis or edema. PSYCHIATRIC: Alert and oriented. Mood and affect are appropriate. DIAGNOSTIC DATA: Sodium 139, potassium 3.3, BUN 20, creatinine 0.8, glucose 114, magnesium 2.1. White blood cell count 10.1, hemoglobin 10.0, hematocrit 31.3, and platelets 205. ASSESSMENT/PLAN: 1. Atrial fibrillation/flutter with rapid ventricular response. 2. Ischemic cardiomyopathy. 3. Coronary artery disease. 4. History of Medtronic permanent pacemaker. 5. Pneumonia. 6. Hypotension. His heart rate continues to be fast. I will have device checked to make sure this is not tracking the atrium from his atrial fibrillation/flutter and also evaluate how much atrial fibrillation he is in. If this is not due to the device, I would recommend increasing medications to slow heart rate. I would like to continue on his amiodarone, beta nathan, dig, and anticoagulation. If he continues to have fast heart rates, I will add beta-nathan as his blood pressure would tolerate. I will try Lopressor 2.5-5 mg IV every 2 hours p.r.n. heart rate greater than 100 if systolic blood pressure is greater than 90. I do not think he would stay in rhythm with direct current cardioversion right now given his acute other illnesses. He may need AV node ablation in the future. Thank you for the consultation. I have read and agree with the documentation that has been completed regarding this visit. By signing this record, I attest that the documentation was completed in my physical presence and is an accurate record of the encounter. Thalia Lu RN / Natan Shane MD / re JOB #: [id number] CC: Ady Macedo, Attending Physician Ady Macedo, Family Physician
--- NOTE | 2016-10-15 11:15 | CVR ---
ADMIT: 10/06/2016 RM/LOC: 416 [facility] MR#: [id number] [address] [address] ALTAF MYERS [address] [place] [address] Cardioversion Report SEX: M AGE: 81 : 1935 DATE: 10/14/2016 INDICATION: Atrial flutter. HISTORY OF PRESENT ILLNESS: Altaf is a pleasant 81-year-old male with history of ischemic cardiomyopathy, who has had recurrent admissions with pneumonia and heart failure exacerbations. He was found on this admission to have atrial flutter with 2:1 block with persistent heart rate of 125 beats per minute. Despite medical therapy, we were unable to get his heart rate below 125 and he was hypotensive, so limited increasing his medications. For those reasons, we decided proceed with direct cardioversion. He had been on Eliquis for anticoagulation, so no transesophageal echo was required. DESCRIPTION OF PROCEDURE: The patient was prepped in the usual fashion and given etomidate by Anesthesia for sedation. He received a single 50-joule biphasic synchronized shock converting him from atrial flutter to sinus rhythm with heart rate of 95 beats per minute. He tolerated the procedure well. We will increase his amiodarone for additional control of his rhythm and heart rate. SUMMARY: Successful cardioversion from atrial flutter to a normal sinus rhythm. Roel Escudero MD/ re JOB #: [id number] CC: Ady Macedo, Attending Physician Ady Macedo, Family Physician
[2016-10-17] MEDS ORDERED: DULCOLAX-DPS5 MG PO (08:07)
[2016-10-17] MEDS ORDERED: KLOR-CON M2020 ME1 PO (08:08)
[2016-10-17] MEDS ORDERED: DULERA 200/58.8 GM IH (08:08)
[2016-10-17] MEDS ORDERED: ZEBETA5 MG PO (08:08)
[2016-10-17] MEDS ORDERED: OXY IR DPS5 MG PO (08:09)
[2016-10-17] MEDS ORDERED: PROVENTIL2.5 MG/3 M IH (08:09)
[2016-10-17] MEDS ORDERED: TUMS DPS500 MG PO (08:09)
[2016-10-17] MEDS ORDERED: DULCOLAX10 MG PR (08:10)
--- NOTE | 2016-10-18 08:50 | DS ---
ADMIT: 10/06/2016 RM/LOC: 416 [facility] MR#: [id number] [address] [address] GUSTABO MYERS [address] [place] [address] Discharge Summary SEX: M AGE: 81 : 1935 ADMISSION DATE: 10/06/2016 DISCHARGE DATE: 10/15/2016 FINAL DIAGNOSES: 1. Aspiration pneumonia. 2. Atrial flutter, status post DC cardioversion. 3. Ischemic cardiomyopathy. 4. Permanent pacemaker. 5. Chronic systolic congestive heart failure. 6. Coronary artery disease. 7. Severe COPD (chronic obstructive pulmonary disease) with exacerbation. 8. Dysphagia with aspiration. 9. Respiratory failure acute on chronic, hypoxic. REASON FOR ADMISSION: This is an 81-year-old gentleman who presented with increased shortness of breath. He was admitted to the Intensive Care Unit and had low blood pressures upon admission. As well, he was treated with IV meropenem and vancomycin initially and it appeared he had sepsis. A PICC line was placed and his blood pressures were maintained with some norepinephrine by IV drip. He also had some IV amiodarone because of persistent tachycardia which looked like atrial flutter in the 120s. He was given IV steroids in addition to the antibiotics. He gradually did improve. He improved enough to be off of pressors. A swallow evaluation revealed some aspiration issues. He had modified barium swallow on the . After this he had an aspiration like episode and required BiPAP and so he was kept on pureed diet with nectar thick liquids. Apparently he has not tolerated BiPAP well in the past and has refused it multiple times. Ultimately, he also had immunoglobulin levels checked. His IgG was a little bit low. He was given a dose of IVIG. Cardiology consulted for the persist in A flutter with a rate not being able to be controlled. He was given IV Lopressor. His bisoprolol was increased to 5 mg b.i.d. He was put on digoxin. Amiodarone was continued. Then ultimately had a DC cardioversion on 10/14. This procedure went well and he converted to normal sinus rhythm with a prolonged GA. He felt a little bit better on the so on then he was set up to be discharged back to [facility]. DISCHARGE MEDICATIONS: Medications will be: 1. Aldactone 12.5 mg daily. 2. Amiodarone 200 mg b.i.d. 3. Dulcolax 5 mg every other day. 4. Eliquis 5 mg b.i.d. 5. Potassium chloride 20 mEq daily. 6. Digoxin 0.25 mg daily. 7. Lasix 80 mg daily. 8. Lipitor 80 mg at bedtime. 9. MiraLAX 1 scoop in water b.i.d. 10.Guaifenesin 400 mg q.i.d. 11.Pepcid 20 mg b.i.d. 12.Plavix 75 mg daily. ADMIT: 10/06/2016 RM/LOC: 416 [facility] MR#: [id number] [address] [place] [id number] GUSTABO MYERS [address] [place] [address] Discharge Summary SEX: M AGE: 81 : 1935 13.Senokot 2 mg b.i.d. 14.Bisoprolol 5 mg p.o. b.i.d. 15.Dulera 200 mg/58.8 g two puffs b.i.d. 16.DuoNeb q.i.d. 17.Spiriva 1 puff daily. 18.Nasal spray q.i.d. 19.Oxycodone 5 mg q.4 p.r.n. 20.Proventil nebulizer q.2 p.r.n. 21.Dulcolax suppository 10 mg daily p.r.n. 22.Eucerin cream b.i.d. 23.Tums 500-1000 mg q.4 p.r.n. 24.Prednisone will be 20 mg daily for 7 days, then 15 mg for 7 days, then 10 mg for 14 days and 5 mg for 14 days, then stop. 25.He will have ertapenem 1 g IV daily x6 days then stop. Remove his PICC line when the IV antibiotics are finished. 26.Also have Mucomyst 20% 3 mL nebulized b.i.d. DISCHARGE INSTRUCTIONS: He should have daily weights. PT, OT and speech therapy. His diet should be pureed with nectar thick liquids and this can be a regular diet. He should have a CBC, BMP and digoxin level in 1 week's time. We will keep him on oxygen, keep his sats between 90-95%. Follow up with me in 1 week's time. Ady Macedo MD/ vdg JOB #: [id number] CC: Ady Macedo MD, Attending Physician Ady Macedo MD, Family Physician
--- NOTE | 2016-10-24 15:00 | ER ---
ADMIT: 10/06/2016 RM/LOC: 311 [facility] MR#: [id number] [address] [address] GUSTABO MYERS [address] [place] [address] Emergency Room Report SEX: M AGE: 81 : 1935 DATE: 10/06/2016 ADDENDUM: An 81-year-old white male coming in with weakness and low blood pressure. He has multiple comorbidities. He was admitted here for sepsis on 09/04/2016, but has the same symptoms at this time. Low blood pressure. White count is 10.3, hemoglobin is 3.3; however, his lactate is normal at this time and is 1.4. Chest x-ray, nothing acute. It essentially was respiratory failure health-care associated pneumonia though we did not see it on chest x- ray at this time. I spoke with Dr. Macedo after he got the 30 mL/kg fluid and Zosyn and antibiotic for cover for possible sepsis. I gave him meropenem. He will admit him. CONDITION ON DISCHARGE: Serious, but stable. Primitivo Zhong MD/ modl JOB #: [id number] CC: Ady Macedo MD, Attending Physician Ady Macedo MD, Family Physician
--- NOTE | 2016-11-02 08:54 | HP ---
ADMIT: 10/06/2016 RM/LOC: 416 [facility] MR#: [id number] [address] [address] [place] [address] History and Physical SEX: M AGE: 81 : 1935 DATE OF SERVICE: CHIEF COMPLAINT: Shortness of breath. HISTORY OF PRESENT ILLNESS: This is an 81-year-old gentleman, well known to me for frequent admissions with long-standing lung disease. He was brought to emergency room with increased shortness of breath, found to have low blood pressures, placed on IV antibiotics. PICC line set up. He was given amiodarone to control his heart rate, but things were not helping that much. He continued to have pretty fast heart rate and he is feeling pretty weak and low blood pressure. He was admitted initially to the ICU. Past history, social history, family history are reviewed from his last H and P and are unchanged. MEDICATIONS: Per the admission medication list. PHYSICAL EXAMINATION: VITAL SIGNS: Pulse is 128, temp 98, respirations 20, blood pressure 72/39. GENERAL: This is a weak-appearing pleasant 81-year-old gentleman, in no apparent distress. He is alert. He appears oriented. HEENT: He is wearing glasses. Pupils are equal, round, and reactive to light and accommodation. His extraocular muscles are intact. His trachea is midline. Thyroid not palpable. Throat is clear. NECK: Supple. HEART: Irregular and tachycardic and distant. LUNGS: Diminished severely bilaterally. ABDOMEN: Mildly distended but nontender. EXTREMITIES: Lower extremities have 2+ lower extremity edema and cool extremities bilaterally. He has gross 4/5 weakness in all motions and has difficulty walking. LABORATORY AND X-RAY DATA: Hemoglobin was 12.5, platelets of 196, and white count of 9.8. INR was normal initially. Troponin is mildly elevated 0.558. CK was 43. Sodium 138, potassium 3, BUN 37, creatinine 1.5. CMP is okay ADMIT: 10/06/2016 RM/LOC: 416 [facility] MR#: [id number] [address] [address] [place] [address] History and Physical SEX: M AGE: 81 : 1935 except for an albumin of 2.7. ASSESSMENT AND PLAN: 1. Hypotension. 2. Pneumonia with sepsis. 3. Chronic obstructive pulmonary disease which is severe. 4. Chronic systolic heart failure. He has coronary artery disease as well. Plan is to admit him to the hospital. Give him IV steroids and IV nebs. Tachycardia maintained. I will turn over to replace lytes and see if it will get better with overall treatment. While also he has been admitted to the hospital, we will have him evaluated by speech therapy to see if he is aspirating. See orders for more details. Ady Macedo MD/ re JOB #: [id number] CC: Ady Macedo MD, Attending Physician Ady Macedo MD, Family Physician
== END 2016-10-15 11:48 | DRG 871 ==
LOC: ER 12:01 → 3ICU 15:00 → 4PCU 10-13 17:18
PROVIDERS: ADMIT Internal Medicine
PROC: 02HV33Z Insertion of Infusion Device into Superior Vena Cava, Percutaneous Approach (ICD-10-PCS; principal; 2016-10-06)
DX: A41.9 Sepsis, unspecified organism (principal); R65.21 Severe sepsis with septic shock; J96.21 Acute and chronic respiratory failure with hypoxia; J69.0 Pneumonitis due to inhalation of food and vomit; I50.23 Acute on chronic systolic (congestive) heart failure; I48.92 Unspecified atrial flutter; D80.1 Nonfamilial hypogammaglobulinemia; Z99.81 Dependence on supplemental oxygen; I48.91 Unspecified atrial fibrillation; R13.10 Dysphagia, unspecified; J44.9 Chronic obstructive pulmonary disease, unspecified; F41.9 Anxiety disorder, unspecified; I25.10 Atherosclerotic heart disease of native coronary artery without angina pectoris; I10 Essential (primary) hypertension; I25.5 Ischemic cardiomyopathy; M19.90 Unspecified osteoarthritis, unspecified site; I44.7 Left bundle-branch block, unspecified; F17.210 Nicotine dependence, cigarettes, uncomplicated; E78.5 Hyperlipidemia, unspecified; H91.90 Unspecified hearing loss, unspecified ear; K21.9 Gastro-esophageal reflux disease without esophagitis; M54.9 Dorsalgia, unspecified; G89.29 Other chronic pain; Z66 Do not resuscitate; Z95.5 Presence of coronary angioplasty implant and graft; Z95.0 Presence of cardiac pacemaker; K59.00 Constipation, unspecified